=== PATIENT | male | born 1955 | race Caucasian/White ===

== ENCOUNTER 2025-04-08 09:37 | Outpatient (CLI) | payer MEDICARE, OTHER, SELFPAY ==
--- OUTSIDE RECORDS SUMMARY | 2010-05-08 19:00 | XMS_ITS | Continuity of Care Document ---
Author Organization [facility] Address [address] [place], [place] [address] [place] [address] Phone Care Team Providers Care Correspondence Specialist Name Role Phone Naina MOELLER MD, Sophia Unavailable Unavailable Procedures Procedure Date EYE EXAM, NEW PATIENT Advance Directives Directive Yes / No Effective Date File Name No Information Encounters Encounter Description Practice Location Reason(s) For Visit Diagnoses Date Provider Providers Copied on Encounter [facility], [address] [place] [address], [id number] tel:[phone] VIANCA Dominguez Optical Presbyopia Oct-0 4-201 0 Naina Cortes. [facility], [address] [place] [address] [place], [place], [id number]. tel:[phone] [facility], [address] [place] [address] [place], [place], [id number] tel:[phone] VIANCA Dominguez MyopiaAstigmati sm, unspecifiedPres byopia Aug-0 3-201 0 Naina Cortes. [facility], [address] [place], [place] [address] [place], [id number]. tel:[phone] Family History Family Member Type Diagnosis Age At Onset No Information Payers Payer name Insurance type Covered constitution party ID Authoriza tion(s) [employer] Generic KYA, HlthAll - Assc Only CI [id number] Social History Type Description Quantity Date Captured Comments Sex Male Smoking Status No Information Chief Complaint And Reason For Visit No Information Reason For Referral Reason For Referral No Information History Of Present Illness Encounter Date Complaint History Of Prese nt Illness No Information Functional Status Date Functional Assessmen t No Information Instructions Date Instruction Additional Infor mation No Information Assessments Type Assessment Date No Information Patient Care Teams Name Effective Dates (start - stop) Status Members No Information
--- OUTSIDE RECORDS SUMMARY | 2025-04-08 10:27 | XMS_ITS | Encounter Summary ---
Author Organization [facility] Health Address [address] [place] [address] Care Team Providers Care Catering Manager Name Role Phone Megha Denney MD Primary Care Provider [phone] Jun Melton MD Unavailable [phone] Ward Chahal DO Primary Care Provider [phone] Encounter Details Date Type Department Care Team (Late st Contact Info) Description 01/18/2017 [facility] Unknown, Provider Social History Tobacco Use Types Packs/Day Years Used Date Smoking Tobacco: Never Sex and Gender Information Value Date Recorded Sex Assigned at Not on file Legal Sex Male 1:51 PM CDT Gender Identity Not on file Sexual Orientation Not on file 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 Not on file Not on file documented as of this encounter Plan of Treatment Not on file documented as of this encounter Visit Diagnoses Not on filedocumented in this encounter Care Teams Catering Manager Relationship Specialty Start Date End Date Megha Denney MD [address] [facility] [place] [address] PCP - General Family Medicine 10/31/16 05/14/22 Ward Chahal DO [address] [place] [phone] PCP - General Family Medicine 05/15/22 [place] [address] [address] Physical Medicine and Rehabilitation 10/31/16 documented as of this encounter
--- OUTSIDE RECORDS SUMMARY | 2025-04-08 10:27 | XMS_ITS | Clinical Summary ---
Author Organization [facility] Address [address] [place] [address] Care Team Providers Care Pouncer Name Role Phone Jun Melton MD Unavailable [phone] Ward Chahal DO Primary Care Provider [phone] Source Comments [facility],non-owned Affiliates and Associated Physician Practices is amultiple site organization consisting of ambulatory clinics and hospital sitesin [place], [place], [place] and [place]. This disclosure is being madepursuant to the Care Everywhere program and may not contain all information available regarding this patient. Last updated 18.[facility] Allergies Active Allergy Reactions Criticality Noted Date Comments Sulfa Drugs 10/31/2016 Medications * Be aware that medications may not be up to date on this document. Alwaysverify current medications with the patient. 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 Not on file Not on file Last Filed Vital Signs Vital Sign Reading Time Taken Comments Blood Pressure 142/85 10/31/2016 8:02 AM CDT Pulse 80 10/31/2016 8:02 AM CDT Temperature - - Respiratory Rate - - Oxygen Saturation - - Inhaled Oxygen Concentration - - Weight 97.5 kg (215 lb) 12/12/2016 3:11 PM CDT Height 193 cm (6' 4) 12/12/2016 3:11 PM CDT Body Mass Index 26.17 12/12/2016 3:11 PM CDT Plan of Treatment Health Maintenance Due Date Last Done Comments COLOGUARD (AGES 45-75) - COL ON CA SCREENING 1955 COLON MONITORING 1955 COLONOSCOPY - COLON CA SCREENING 1955 CT COLONOGRAPHY - COLON CA SCREENING 1955 Colorectal Cancer Screening 1955 FIT - COLON CA SCREENING 1955 FLEX SIG - COLON CA SCREENING 1955 LIPID TESTING 1955 MEDICARE AWV 12 MONTHS 1955 HEPATITIS C SCREENING 01/18/1973 DTAP/TDAP/TD VACCINES (1 - Tdap) 1974 PNEUMOCOCCAL VACCINE 50+ (1 of 1 - PCV) 2005 ZOSTER VACCINE (1 of 2) 2005 COVID-19 VACCINE (1 - 2023-2 5 season) 2024 DEPRESSION SCREENING 08/06/2024 INFLUENZA VACCINE (#1) 2025 Respiratory Syncytial Virus (RSV) Vaccine Pt: or over 60 yrs (1 - 1-dose 75+ series) 2030 HEPATITIS B VACCINE Aged Out No longe r eligible based on patient's age to complete this topic HIB VACCINE Aged Out No longer eligi ble based on patient's age to complete this topic HPV VACCINE Aged Out No longer eligi ble based on patient's age to complete this topic MENINGOCOCCAL (Group B) VACC INE SHARED DECISION-MAKING Aged Out No longer eligibl e based on patient's age to complete this topic MENINGOCOCCAL GROUPS A/C/Y/W VACCINE Aged Out No longer eligible b ased on patient's age to complete this topic Insurance MEDICARE [facility] Care Teams Pouncer Relationship Specialty Start Date End Date Ward Chahal DO [address] [place] [phone] PCP - General Family Medicine 05/15/22 [place] [address] [address] Physical Medicine and Rehabilitation 10/31/16
--- OUTSIDE RECORDS SUMMARY | 2025-04-08 10:28 | XMS_ITS | Clinical Summary ---
Author Organization [facility] Address [address] [place] [address] Phone Care Team Providers Care Waste Duster Name Role Phone Unavailable Primary Care Provider Unavailabl e Allergies Active Allergy Reactions Criticality Noted Date Comments Sulfa (Sulfonamide Antibiotics) Hives,Rash High 08/06/2004 Terazosin Nausea and Vomiting,Other (See Comments) Low 08/06/2022 DISORIENTATION Medications latanoprost (XALATAN) 0.005 % solution Administer 1 Drop in both eyes. Active triamcinolone acetonide (KENALOG) 0.1 % Cream Apply to affected area. As needed Active cholecalciferol 1,250 mcg (50,000 unit) Capsule Take 1.25 mg by mouth every 7 days. Active flaxseed oil (OMEGA 3 ORAL) Take by mouth. Active beta-carotene,A ,-vits C,E/mins (OCUVITE ORAL) Take by mouth. Active loratadine (CLARITIN ORAL) Take by mouth. Active Active Problems No known active problems Encounters Date Type Department Care Team Description 03/10/2025 External Device Data [facility] ABSTRACTION Provider, Abstract 01/06/2025 External Device Data [facility] ABSTRACTION Provider, Abstract 01/06/2025 External Device Data [facility] ABSTRACTION Provider, Abstract 01/06/2025 External Device Data [facility] ABSTRACTION Provider, Abstract from Last 3 Months Family History Medical History Relation Name Comments Other Mother Neda Galan COPD and Con gestive Heart failure Relation Name Status Comments Mother Neda Galan Alive Social History Tobacco Use Types Packs/Day Years Used Date Smoking Tobacco: Never Alcohol Use Standard Drinks/Week Comments Yes 2 (1 standard drink = 0.6 oz pur e alcohol) Sex and Gender Information Value Date Recorded Sex Assigned at Not on file Legal Sex Male 11:39 AM ACADEMIC ADVISER Gender Identity Not on file Sexual Orientation Not on file Last Filed Vital Signs Vital Sign Reading Time Taken Comments Blood Pressure 136/80 09/29/2024 8:22 AM ACADEMIC ADVISER Pulse 60 09/29/2024 8:22 AM ACADEMIC ADVISER Temperature - - Respiratory Rate - - Oxygen Saturation - - Inhaled Oxygen Concentration - - Weight 105.7 kg (233 lb) 09/29/2024 8:22 AM ACADEMIC ADVISER Height 193 cm (6' 4) 09/29/2024 8:22 AM ACADEMIC ADVISER Body Mass Index 28.36 09/29/2024 8:22 AM ACADEMIC ADVISER Plan of Treatment Health Maintenance Due Date Last Done Comments Pre-Diabetes and Diabetes Screening 1955 DTAP/TDAP/TD VACCINES (1 - Tdap) 1974 FIT-DNA Q 3 years 01/24/2000 FIT/FOBT Q 1 year 01/24/2000 PNEUMOCOCCAL VACCINE 50+ YEA RS (2 of 2 - PCV) 04/28/2018 04/28/2017 INFLUENZA VACCINE (#1) 2025 2, 05/10/2021, 05/10/2021, Additional history exists Flex Sig/CT Colonography Q 5 years 04/29/20292023, 04/29/2024 RSV VACCINE (60+ or ) (1 - 1-dose 75+ series) 2030 COLORECTAL SCREENING 04/29/2034 04/29/2024 Colorectal Cancer Screening 04/29/2034 ZOSTER VACCINE Completed 06/28/2020, 04/27/2020 Insurance MEDICARE PART A AND B [facility] [place] [address]
--- OUTSIDE RECORDS SUMMARY | 2025-04-08 10:28 | XMS_ITS | Encounter Summary ---
Author Organization [facility] Health Address [address] [place] [address] Care Team Providers Care Mill Tender Second Operator Name Role Phone Megha Denney MD Primary Care Provider [phone] Jun Melton MD Unavailable [phone] Ward Chahal DO Primary Care Provider [phone] Encounter Details Date Type Department Care Team (Late st Contact Info) Description 12/21/2016 [facility] Unknown, Provider Social History Tobacco Use Types Packs/Day Years Used Date Smoking Tobacco: Never Sex and Gender Information Value Date Recorded Sex Assigned at Not on file Legal Sex Male 1:51 PM CDT Gender Identity Not on file Sexual Orientation Not on file 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 Not on file Not on file documented as of this encounter Plan of Treatment Not on file documented as of this encounter Visit Diagnoses Not on filedocumented in this encounter Care Teams Mill Tender Second Operator Relationship Specialty Start Date End Date Megha Denney MD [address] [facility] [place] [phone] PCP - General Family Medicine 10/31/16 05/14/22 Ward Chahal DO [address] [place] [phone] PCP - General Family Medicine 05/15/22 [place] [address] [address] Physical Medicine and Rehabilitation 10/31/16 documented as of this encounter
--- OUTSIDE RECORDS SUMMARY | 2025-04-08 10:28 | XMS_ITS | Encounter Summary ---
Author Organization [facility] Health Address [address] [place] [address] Care Team Providers Care Assistant Field Hockey Coach Name Role Phone Megha Denney MD Primary Care Provider [phone] Jun Melton MD Unavailable [phone] Ward Chahal DO Primary Care Provider [phone] Encounter Details Date Type Department Care Team (Late st Contact Info) Description 01/15/2017 [facility] Unknown, Provider Social History Tobacco Use Types Packs/Day Years Used Date Smoking Tobacco: Never Sex and Gender Information Value Date Recorded Sex Assigned at Not on file Legal Sex Male 1:51 PM CDT Gender Identity Not on file Sexual Orientation Not on file 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 Not on file Not on file documented as of this encounter Plan of Treatment Not on file documented as of this encounter Visit Diagnoses Not on filedocumented in this encounter Care Teams Assistant Field Hockey Coach Relationship Specialty Start Date End Date Megha Denney MD [address] [facility] [place] [phone] PCP - General Family Medicine 10/31/16 05/14/22 Ward Chahal DO [address] [place] [phone] PCP - General Family Medicine 05/15/22 [place] [address] [address] Physical Medicine and Rehabilitation 10/31/16 documented as of this encounter
--- NOTE | 2025-04-08 10:48 | ECG_ITS ---
Test Date: 2025-04-08 11:00:24 Measurements Intervals [place] Rate: 65 P: 25 SD: 168 QRS: 5 QRSD: 117 T: 28 QT: 412 QTc: 430 Interpretive Statements SINUS RHYTHM MINIMAL VOLTAGE CRITERIA FOR LVH, CONSIDER NORMAL VARIANT [MEETS CRITERIA IN ONE OF: R(aVL), S(V1), R(V5), R(V5/V6)+S(V1)] POSSIBLE LATERAL MYOCARDIAL INFARCTION [30 ms Q WAVE IN I/aVL/V5/V6], OF ABNORMAL ECG No previous ECG available for comparison Electronically Signed On 04-08-2025 11:22:39 CDT by Adrian Mckay M.D.
[2025-04-08 11:13] LABS: Hematocrit 47.4 % (42.0-52.0); Hemoglobin 15.4 g/dL (14.0-18.0); Mean Corpuscular HGB Conc 32.5 g/dl (32-36); Mean Corpuscular Hemoglobin 31.1 pg (26-34); Mean Corpuscular Volume 95.8 fl (80-100); Platelet Count Result 149 k/mm3 (150-375); Red Blood Count 4.95 M/mm3 (4.6-6.20); White Blood Count 6.2 K/mm3 (4.5-10.0)
[2025-04-08 11:16] LABS: Add Urine Microscopic? YES; Appearance Urine Cloudy (Clear); Glucose Urine UA Negative (Negative); Leukocyte Esterase Ur Negative LEU/UL (Negative); Nitrate Urine Negative (Negative); Non Pathogenic Casts 0-2; Specific Grav Ur 1.017 (1.001-1.035)
[2025-04-08 11:33] LABS: INR 1.0; Partial Thromboplastin Time 32.2 Seconds (22.3-36.8); Prothrombin Time 12.7 Seconds (11.1-14.7)
[2025-04-08 11:38] LABS: Anion Gap 6 mmol/L (4-12); Blood Urea Nitrogen 14 mg/dL (9-20); Calcium 9.2 mg/dL (8.4-10.2); Carbon Dioxide 29 mmol/L (22-30); Chloride 106 mmol/L (98-107); Estimated Glomerular Filt Rate > 60; Glucose 80 mg/dL (65-110); Potassium 4.5 mmol/L (3.4-5.0); Sodium 141 mmol/L (137-145)
== END 2025-04-08 09:38 | disposition home or self-care (01) ==
PROVIDERS: Visit Provider Neurological Surgery
DX: M48.062 Spinal stenosis, lumbar region with neurogenic claudication (principal); Z01.818 Encounter for other preprocedural examination; R94.31 Abnormal electrocardiogram [ECG] [EKG]
CPT/HCPCS: 36415; 80048; 81001; 85027; 85610; 85730; 93005

== ENCOUNTER 2025-04-17 02:54 | Day surgery (SDC) | payer MEDICARE, OTHER, SELFPAY ==
--- NOTE | 2025-04-08 09:56 | PC.NURSE ---
Report to the Outpatient Waiting Room, entrance under the green pavilion located off [facility], at time _11:30 AM on date _04/17/25 . Planned Procedure Time: _1:30 PM .? Time changes happen often and if your time is changed the preop area will call you the afternoon before. - You and your visitor will be asked to self-screen and do not enter if you have any COVID symptoms. Please call surgeon if you need to reschedule. - A mask is optional within the hospital at this time. Patients may have clear liquids (water, carbonated beverages, clear teas, apple juice) until 3 hours prior to surgery( 10:30 AM) with a maximum of 20 ounces. - No food from midnight until time of surgery and no smoking, or chewing tobacco (or any form of nicotine). No chewing gum, candy or mints. - Take only the following medications with a SIP of water on the morning of surgery: ____NONE DO NOT STOP ANY OF YOUR OTHER PRESCRIPTION MEDICATIONS PRIOR TO SURGERY EXCEPT THE FOLLOWING Hold all vitamins and supplements for 3 days per anesthesiologist.LAST DOSE 04/13/25 Medications to discontinue per physician NONE Please no make-up, nail yi, hairspray, perfume, deodorant, or body powder the day of surgery.? No jewelry (including any body piercings) or valuables the day of surgery, leave them at home.? Please take a shower or bath the night before, or the morning of, surgery with an antibacterial soap.? Wear comfortable, loose fitting clothing.? Children are encouraged to wear pajamas. - Jewelry must be removed prior to entering the operating room.? Rings and piercings that are not removed may be cut off. - The hospital will not accept responsibility for valuables.? - Please leave all valuables, including medications, at home the day of surgery. If you are going home after surgery, a licensed coach driver must drive you home.? - NO public transportation without another adult if you receive anesthesia. - We recommend that an adult stay with you for 24 hours following discharge. - We also recommend that you do not drive, make important decision, drink alcoholic beverages, or take any drugs that were not prescribed by your health care provider for at least 24 hours after your discharge time. For Pediatric surgeries, we recommend two adults accompany the child home. Follow any additional instructions given to you from your surgeon. VERBAL AND WRITTEN instructions given to ___PATIENT and asked if any additional questions and then verbalized understanding. Patient advised to call surgeon office or pre surgery nurse liaison [phone] if any additional questions.
[2025-04-08 09:59] VITALS: BMI 28.1
[2025-04-08 10:34] VITALS: BP 153/88; PULSE 64; RESP 18; TEMP 37; O2SAT 99
[2025-04-17] VITALS (9 sets, daily range): BP systolic 111–144; BP diastolic 73–90; PULSE 59–84; RESP 10–18; TEMP 36.3–36.4; O2SAT 95–100; BMI 28.4
--- NOTE | ~2025-04-17 | XR_ITS ---
XR fluoroscopy no charge Indication:L4-5 bilateral lumbar laminectomy, medial facetectomy and discectomy TECHNIQUE: Fluoroscopy used during L4-5 bilateral lumbar laminectomy, medial facetectomy and discectomy performed by [Wolf Culver MD] on 04/17/2025. 12 seconds with 2 fluoroscopic images captured. FINDINGS: Correlate with procedure note. IMPRESSION: Fluoroscopy used during L4-5 bilateral lumbar laminectomy, medial facetectomy and discectomy. Reviewed, dictated and finalized at location O. IMPRESSION: Fluoroscopy used during L4-5 bilateral lumbar laminectomy, medial f acetectomy and discectomy.
[2025-04-17] MEDS: LACTATED RINGERS 1,000 ML 30 ML IV CONT ×2 (06:15→09:18)
--- NOTE | 2025-04-17 06:48 | WPDANESEPPF ---
Anes - Initial Pre Proc Eval Procedure: Operation Date: 04/17/25 07:30 Proposed Procedures p L4-5, Bilateral Lumbar Laminectomies and Medial Facetectomy and Discectomy - Wolf Culver MD Date/Time: 04/17/25 06:48 Surgeon: Wolf Culver MD Pre Op Diagnosis: lumbar spinal stenosis Patient Data Age: 70 Gender: M Height: 1.93 m Weight: 105 kg Last Vital Signs Temp 37.0 C 04/08/25 10:34 Pulse 64 04/08/25 10:34 Resp 18 04/08/25 10:34 BP 153/88 H 04/08/25 10:34 Pulse Ox 99 04/08/25 10:34 O2 Del Method Room Air 04/08/25 10:34 Allergies Allergy/AdvReac Type Severity Reaction Status Date / Time Sulfa (Sulfonamide Allergy Hives Verified 04/17/25 06:06 Antibiotics) terazosin AdvReac Dizziness Verified 04/17/25 06:06 Home Medications ?Medication ?Instructions ?Recorded ?Confirmed ?Type latanoprost 0.005 % eye drops 1 drp EACH EYE HS 03/13/25 04/08/25 History cyclobenzaprine 5 mg tablet 5 mg PO TID #42 tabs 03/20/25 04/08/25 Rx acetaminophen 500 mg tablet 1,000 mg PO PRN PRN pain 04/08/25 04/08/25 History (Acetaminophen Extra Strength) cholecalciferol (vitamin D3) 125 10,000 unit PO DAILY 04/08/25 04/08/25 History mcg (5,000 unit) capsule omega-3 fatty acids 500 mg PO DAILY 04/08/25 04/08/25 History vitamin A-vitamin C-vit E-min 1 tablet PO DAILY 04/08/25 04/08/25 History tablet (Ocutabs tablet) Patient hx anesthesia problems: none Family hx anesthesia problems: none Results Review: All pre-operative results and documents have been reviewed as part of the pre-operative evaluation. FORMERLY [facility], [facility] Past Medical History Medical History (Updated 04/17/25 @ 06:48 by Ervin Rajan DO) MASON (obstructive sleep apnea) PVD (peripheral vascular disease) History of prostate cancer Surgical History Surgical History (Updated 03/13/25 @ 14:00 by Adriana Harrison MA) History of appendectomy Family History Family History (Updated 03/13/25 @ 14:01 by Adriana aHrrison MA) Father Alcoholism Mother Heart disease Social History Social History (Updated 03/13/25 @ 14:03 by Adriana Harrison MA) Smoking status: Never smoker Alcohol intake: current Drinks per week: 3 Substance use: never Do You Feel Safe in your Home?: Yes Lack of Transportation: No Lack of Food: Sometimes True Current Housing: I Have Housing Concerned About Future Housing: No Difficulty Paying Gas/Electric Bills: No Difficulty Paying for Meds: No Currently Unemployed: No Difficulty w/ Childcare or Family Care: No Living arrangements: with family Spiritual care concerns: No Anes - Eval Final PreProcedure Day of Procedure 04/17/25 06:48 Patient weight: overweight Heart: regular rate and rhythm Lungs: clear to auscultation Airway: Mallampati scale class II Neurological: alert and oriented Last oral intake: >/= 8 hours ASA classification: III Emergent: no Anesthetic plan: proceed Anesthesia type and monitoring: general ETT and standard monitoring Results Review: All pre-operative results and documents have been reviewed as part of the pre-operative evaluation. Informed Consent: The patient's anesthetic plan and its attendant risks and benefits were discussed with the patient/family/POA. Questions were solicited and answers provided to the satisfaction of the patient/family/POA.
--- NOTE | 2025-04-17 07:16 | WPDHPUPDATE1 ---
History and Physical Update Update Date/Time: 04/17/25 07:16 History and Physical has been reviewed, including an updated exam of the patient. There are NO changes in the patient's condition. Risks, benefits, and alternatives have been discussed and questions answered. Patient agrees to proceed with procedure.
--- NOTE | 2025-04-17 07:17 | PM.IMHP ---
H&P: HPI History of Present Illness Date/Time: 04/17/25 07:17 Chief Complaint: left leg pain Narrative: 70-year-old otherwise healthy gentleman with 3 months of low back and difficulty walking long distances found to have L4-5 severe spinal stenosis with associated disc bulge. The disc bulge is more prominent on the left side. I have offered him an L4-5 bilateral lumbar laminectomy bilateral medial facetectomy with left-sided L4-5 diskectomy for decompression of his spinal canal. I discussed the benefits of the procedure and alternatives. I also discussed the risks which include but are not limited to bleeding, infection, spinal fluid leak, numbness, tingling, weakness, bowel bladder incontinence, loss of sexual function, paralysis, stroke, coma, . Review of Systems Review of Systems: negative [facility] Past Medical History Medical History (Updated 04/17/25 @ 06:48 by Ervin Rajan DO) MASON (obstructive sleep apnea) PVD (peripheral vascular disease) History of prostate cancer Surgical History Surgical History (Updated 03/13/25 @ 14:00 by Adriana Harrison MA) History of appendectomy Family History Family History (Updated 03/13/25 @ 14:01 by Adriana Harrison MA) Father Alcoholism Mother Heart disease Social History Social History (Updated 03/13/25 @ 14:03 by Adriana Harrison MA) Smoking status: Never smoker Alcohol intake: current Drinks per week: 3 Substance use: never Do You Feel Safe in your Home?: Yes Lack of Transportation: No Lack of Food: Sometimes True Current Housing: I Have Housing Concerned About Future Housing: No Difficulty Paying Gas/Electric Bills: No Difficulty Paying for Meds: No Currently Unemployed: No Difficulty w/ Childcare or Family Care: No Living arrangements: with family Spiritual care concerns: No Meds Home Medications and Allergies Home Medications ?Medication ?Instructions ?Recorded ?Confirmed ?Type latanoprost 0.005 % eye drops 1 drp EACH EYE HS 03/13/25 04/08/25 History cyclobenzaprine 5 mg tablet 5 mg PO TID #42 tabs 03/20/25 04/08/25 Rx acetaminophen 500 mg tablet 1,000 mg PO PRN PRN pain 04/08/25 04/08/25 History (Acetaminophen Extra Strength) cholecalciferol (vitamin D3) 125 10,000 unit PO DAILY 04/08/25 04/08/25 History mcg (5,000 unit) capsule omega-3 fatty acids 500 mg PO DAILY 04/08/25 04/08/25 History vitamin A-vitamin C-vit E-min 1 tablet PO DAILY 04/08/25 04/08/25 History tablet (Ocutabs tablet) Allergies Allergy/AdvReac Type Severity Reaction Status Date / Time Sulfa (Sulfonamide Allergy Hives Verified 04/17/25 06:06 Antibiotics) terazosin AdvReac Dizziness Verified 04/17/25 06:06 Vital Signs Vital Signs - 24 hr 04/17/25 06:10 Temperature 97.6 F Pulse Rate 74 Respiratory Rate 14 Blood Pressure 144/90 H Pulse Oximetry 100 Oxygen Delivery Room Air Exam Narrative: neuro intact Assessment and Plan Assessment and plan (1) Spinal stenosis, lumbar region with neurogenic claudication: Code(s): M48.062 - Spinal stenosis, lumbar region with neurogenic claudication Status: Acute Assessment and Plan: 70-year-old otherwise healthy gentleman with 3 months of low back and difficulty walking long distances found to have L4-5 severe spinal stenosis with associated disc bulge. The disc bulge is more prominent on the left side. I have offered him an L4-5 bilateral lumbar laminectomy bilateral medial facetectomy with left-sided L4-5 diskectomy for decompression of his spinal canal. I discussed the benefits of the procedure and alternatives. I also discussed the risks which include but are not limited to bleeding, infection, spinal fluid leak, numbness, tingling, weakness, bowel bladder incontinence, loss of sexual function, paralysis, stroke, coma, .
[2025-04-17] MEDS: ceFAZolin 2 GM in SODIUM CHLORIDE 0.9% IV 50 ML 100 ML IVPB (07:25)
--- NOTE | 2025-04-17 09:14 | W.PM.PROC2 ---
Procedure Note - Detailed Date of Procedure 04/17/25 Pre-op Diagnosis lumbar spinal stenosis Post-op Diagnosis Same Procedure Performed L4/5 bilateral lumbar laminectomy L4/5 left microdiscectomy use of operating microscope for microdissection Surgeon Wolf Culver MD Anesthesia General Indications Lumbar radiculopathy Findings Severe spinal stenosis and lumbar disc herniation Description of Procedure The patient was brought into the operating room and turned over to Anesthesia for intubation once this was complete the patient was positioned prone onto the Hubert frame. All bony prominences were padded. Lateral fluoroscopy was brought in to confirm the L4-5 level. A skin incision was marked. The patient was then prepped and draped. Final time-out was performed to indicate correct patient procedure and site. I then made a linear incision down to the fascia. Hemostasis was obtained I had an open fashion a subperiosteal manner off of the lamina and spinous process of L4 and L5. Self-retaining retractors were then placed. Lateral fluoroscopy was brought in a marker was placed at L4-5 to confirm the correct level. I then used a rongeur to remove the spinous process of L4 partially of L5. I then used a drill to complete a laminectomy at L4-5. I carefully removed the ligamentum flavum with an upgoing curette and [place] Rags[place]. The thecal sac was then decompressed. I then used a Charlotte 4 to gently retract the thecal sac at L4-5 to identify the bulging disc. This was on the left side. I then used a self retaining retractor nerve root retractor to have my [employer] assistant manager hold back the nerve. I then cut the disc bulge with an 11 blade and removed these with a nerve hook and pituitary rongeur. The nerve was decompressed and was no additional disc bulge removed. A very large disc bulge was removed. Of note I did take lateral fluoroscopy with nerve hooks at rostral and caudal extent of decompression to confirm that I decompressed the L4-5 space completely. At this point hemostasis was obtained the wound was irrigated and the wound was then closed in layers. Patient was then flipped supine and turned over Anesthesia for extubation. There were no complications. Complications No immediate complications [facility] Billing Surgery - Charge Forward: Surgery Billing
[2025-04-17] MEDS: oxyCODONE HCL (*CRX) 5 MG TAB IR PO (10:35)
== END 2025-04-17 11:01 | disposition home or self-care (01) ==
PROVIDERS: PCP Family Medicine; Visit Provider Neurological Surgery
PROC: (CPT 63005; principal; 2025-04-17 07:30)
DX: M48.062 Spinal stenosis, lumbar region with neurogenic claudication (principal); M51.16 Intervertebral disc disorders with radiculopathy, lumbar region
CPT/HCPCS: 63047; 99199; J0690; A9270; J1100; J1171; J2405; J2704; J7030; J7120